=== PATIENT | female | born 1980 | race Caucasian/White ===

== ENCOUNTER 2019-12-16 14:08 | Emergency (ER) | payer OTHER ==
[~2019-12-16] VITALS: Ht 152.4 cm; Wt 86.2 kg
[2019-12-16] MEDS ORDERED: PNV 29-1 TABLE1 EACH PO (14:19)
[2019-12-16 14:55] LABS: HEMATOCRIT 38.8 % (37.0-47.0); HEMOGLOBIN 12.9 gm/dL (12.0-15.0); MCH 27.9 pg (26.0-34.0); MCHC 33.2 g/dL (28.0-37.0); MCV 83.8 fL (80.0-100.0); RBC 4.63 mil/uL (4.20-5.00); WBC 10.2 thou/uL (4.0-11.0)
[2019-12-16 15:04] LABS: CALCIUM 9.1 mg/dL (8.5-10.1); CREATININE 0.7 mg/dL (0.6-1.0); POTASSIUM 3.4 mmol/L (3.5-5.1)
[2019-12-16] MEDS ORDERED: ULTRAM 50MG TAB50 MG PO (16:29)
[2019-12-16 17:33] VITALS: BP 101/51
== END 2019-12-16 17:33 | disposition home or self-care (01) ==
LOC: ER 14:08
PROVIDERS: Physician Assistant
DX: M25.511 Pain in right shoulder (principal)